=== PATIENT | male | born 1990 | race Caucasian/White ===

== ENCOUNTER 2016-08-13 10:06 | Emergency (ER) | payer OTHER ==
[~2016-08-13] VITALS: Ht 177.8 cm; Wt 99.1 kg
[2016-08-13 10:11] VITALS: BP 157/114; PULSE 94; RESP 16; O2SAT 97
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
== END 2016-08-13 11:24 | disposition home or self-care (01) ==
LOC: SED 10:06
DX: N45.1 Epididymitis (principal); F17.200 Nicotine dependence, unspecified, uncomplicated; Z88.2 Allergy status to sulfonamides